=== PATIENT | male | born 1965 | race Caucasian/White ===

== ENCOUNTER 2024-05-28 14:43 | Emergency (ER) | payer BC ==
[~2024-05-28] VITALS: Ht 167.6 cm; Wt 68.0 kg
[2024-05-28] MEDS ORDERED: KETOROLAC TROMETHAMINE INJ 30 MG/ML VIAL ONE (16:49)
[2024-05-28] MEDS ORDERED: LIDOCAINE 5% (PATCH) 1 EA PATCH TP ONE (16:49)
[2024-05-28] MEDS ORDERED: BACLOFEN (10 MG) 10 MG TABLET ONE (16:49)
[2024-05-28] MEDS: KETOROLAC TROMETHAMINE INJ 30 MG/ML VIAL IM ONE (16:57)
[2024-05-28] MEDS: BACLOFEN (10 MG) 10 MG TABLET PO ONE (16:58)
[2024-05-28] MEDS: LIDOCAINE 5% (PATCH) 1 EA PATCH TP SCH (16:58)
[2024-05-28] MEDS ORDERED: LIDO30AD10 TP (17:46)
[2024-05-28] MEDS ORDERED: KETO10TA2 PO (17:46)
[2024-05-28] MEDS ORDERED: BACL5TAB PO (17:46)
[2024-05-28 18:20] VITALS: BP 132/78; TEMP 98.6; O2SAT 99
== END 2024-05-28 18:21 | disposition home or self-care (01) ==
LOC: ER 16:36
DX: S29.012A Strain of muscle and tendon of back wall of thorax, initial encounter (principal); Z79.899 Other long term (current) drug therapy; Z88.0 Allergy status to penicillin; X58.XXXA Exposure to other specified factors, initial encounter; Y93.89 Activity, other specified; Y92.098 Other place in other non-institutional residence as the place of occurrence of the external cause; Y99.8 Other external cause status
CPT/HCPCS: 99283; 96372; J1885